=== PATIENT | male | born 1960 | race Caucasian/White ===

== ENCOUNTER 2018-07-21 16:15 | Emergency (ER) | payer SELFPAY, BC ==
[~2018-07-21] VITALS: Ht 170.2 cm; Wt 65.9 kg
[2018-07-21] MEDS ORDERED: LISI10TA4 PO (16:42)
[2018-07-21] MEDS ORDERED: ONDANSETRON 4MG/2ML VIAL (J2405) IV ONE (16:45)
[2018-07-21] MEDS ORDERED: NS 1,000 ML IV SCH (17:37)
[2018-07-21] MEDS: MORPHINE 4 MG/ML 1ML VIAL/SYRINGE (J2270) IV PRN ×2 (17:42→18:30)
[2018-07-21] MEDS ORDERED: PROPOFOL 200 MG/20 ML VIAL IV PRN (17:45)
[2018-07-21] MEDS ORDERED: LIDOCAINE 1% MDV 20ML VIAL As Ordered ONE (18:01)
[2018-07-21] MEDS ORDERED: LIDOCAINE 1% MDV 20ML VIAL IM ONE (18:15)
[2018-07-21] MEDS ORDERED: MORPHINE 4 MG/ML 1ML VIAL/SYRINGE (J2270) As Ordered ONE (18:48)
[2018-07-21] MEDS ORDERED: MORPHINE 4 MG/ML 1ML VIAL/SYRINGE (J2270) IV ONE (19:00)
--- NOTE | 2018-07-21 20:02 | REP ---
Clinical: Status post reduction. Technique: Portable AP, lateral, oblique views of the left ankle. Findings: Fractures of the distal fibular metaphysis and medial malleolus are identified. Improved alignment at the tibiotalar joint is appreciated compared to prior. Impression: Fractures of the distal fibular metaphysis and medial malleolus. Improved alignment at the tibiotalar joint. Electronically Signed by Matthew Keita MD 07/21/2018 07:53 P
--- NOTE | 2018-07-21 20:14 | REP ---
Clinical: Trauma. Reduction. Technique: Axial noncontrast images through the ankle with coronal and sagittal re-formations. Findings: There is a comminuted fracture of the distal fibular metaphysis with approximately 7 mm posterolateral displacement of the primary distal fracture fragment. There are fractures of the medial and posterior malleoli needs distal tibia with mild displacement. Surrounding post traumatic soft tissue infiltration and small areas of hematoma noted. The remainder of the osseous structures appear intact. Impression: Fractures of the distal fibular metaphysis and medial / posterior malleoli with mild displacement. Electronically Signed by Matthew Keita MD 07/21/2018 08:04 P
[2018-07-21] MEDS ORDERED: NORCO 5/325MG TABLET (BULK FOR ED) PO ONE (21:15)
--- NOTE | 2018-07-21 21:47 | REP ---
Clinical: Status post reduction. Technique: Intraoperative fluoroscopic imaging using portable C-arm technique. Findings: Five last hold images during closed reduction demonstrate seemingly satisfactory alignment of the distal fibular and medial / posterior malleolar fractures. Total fluoroscopic time 39 seconds. Impression: Seemingly satisfactory reduction Electronically Signed by Matthew Keita MD 07/21/2018 09:39 P
[2018-07-21 21:55] VITALS: BP 139/71
[2018-07-21] MEDS ORDERED: VICO5TAB17 PO (22:03)
--- NOTE | 2018-07-21 23:22 | CR ---
DATE OF CONSULTATION: 07/21/2018 CHIEF COMPLAINT: Left ankle fracture/dislocation. HISTORY OF PRESENT ILLNESS: Axel is a very pleasant 58-year-old gentleman who sustained a left ankle injury while at work. He had commuted from [place] and was helping move some heavy equipment from a shed, when he lost his balance and twisted his ankle. He had immediate pain and deformity and is unable to bear weight. There were no open wounds. He was brought to the emergency room (ER) at [facility], where x-rays revealed a trimalleolar fracture/dislocation. I was consulted for reduction. The patient was reporting fairly minimal pain. Denied numbness or tingling. Denied any prior ankle injuries. PAST MEDICAL HISTORY: Notable for hypertension. PAST SURGICAL HISTORY: Chest tube. ALLERGIES: No known drug allergies. MEDICATIONS: Antihypertensive medications. SOCIAL HISTORY: The patient does not smoke or abuse alcohol or illicit drugs. Lives out in [place]. He lives with his , who has multiple medical problems. Again, this is a workman's compensation injury. PHYSICAL EXAMINATION: On exam, This is a well-appearing gentleman in no distress. Alert and times three. NEUROLOGIC: Appropriate mood, pleasant affect. CARDIOVASCULAR: 2+ dorsalis pedis (DP) pulse and posterior tibial (PT) pulse. PULMONARY: Nonlabored breathing. ABDOMEN: Soft, nontender, nondistended. SKIN: In the ankle was intact with no open wounds. No abrasions. MUSCULOSKELETAL: Obvious deformity, consistent with a fracture/dislocation, left ankle. There was borderline skin tenting but no threatened open areas. He had intact sensation light touch. He could fire extensor hallucis longus (EHL) and flexor hallucis longus (FHL). His knee was nontender. X-rays, three views, of the left ankle in the ER revealed a trimalleolar ankle fracture/dislocation. ASSESSMENT AND PLAN: Mr. Milian is a 58-year-old gentleman with a left ankle fracture/dislocation. I recommended a closed reduction and ankle joint block. Certainly some logistics issues getting fixed out here or [place]. I did explain to him the operating room (OR) was unavailable due to multiple emergency procedures going on. The risks and benefits of a closed reduction and casting with an ankle block were discussed. Written informed consent was obtained. The patient received a total of 8 mg of IV morphine. The left ankle was marked. It was then sterilely prepped with chlorhexidine. I then injected 10 mL of 1% lidocaine with a 22-gauge needle just medial to the tibialis anterior per hematoma block technique, but this was into the ankle joint, not into the fracture site. That was tolerated well. That was allowed to set for 10 minutes. One of the ER nurses assisted me, and she hyperflexed the left knee, and then I performed a closed reduction with manipulation, pulling the heel anteriorly to undo the posterior subluxation and then internally rotating. This did take multiple attempts, but I was able to successfully reduce the ankle. I confirmed this on AP, lateral, and mortise views with the mini C-arm. I initially planned to splint the patient; however, this was a highly unstable fracture pattern. The talus easily wanted to subluxate posteriorly, so I elected to place him into a well-padded short-leg fiberglass cast. I applied that cast myself and applied a Kathy's type mold with a posterior to anterior force on the heel, and then final images with the cast set. AP, lateral, mortise views on the C-arm showed a near-anatomic reduction. About 1-2 mm of lateral talar shift. No residual dislocation. I then obtained a post reduction CT scan for surgical planning purposes due to the posterior malleolar fracture, and that showed an excellent reduction. The posterior malleolar fragment is less than 20% of the articular surface. I explained to the patient this was a successful procedure. He will need definitive open reduction, internal fixation. We offered to fix him here in [place], or he could go back to [place]. The patient ultimately has elected to go back to [place], which I think is going to be the better logistical decision, especially this being workman's compensation and questionable availability of the OR even late into tomorrow evening. The patient was instructed that he must bring a CD with his x-rays and CT scans to his followup visit. The patient must file a workman's compensation claim tomorrow. He must see an orthopedic surgeon either tomorrow or Thursday before the weekend so he can get on that radar. My opinion is that he will likely be too swollen to be fixed early next week, likely would be 8-9 days at the earliest. He also was advised to let them know that this was a fairly unstable ankle fracture. He was repeatedly educated on the importance of strict elevation. Also non-weightbearing. All the patient's questions were answered. Again, patient was offered for followup here, and he is choosing to followup in [place].
--- NOTE | 2018-07-22 08:13 | REP ---
Clinical: Trauma. Technique: Portable AP and lateral. Findings: Acute ankle fracture(s) possibly involving the posterior and lateral malleoli with overlying soft tissue swelling noted and disruption to the ankle joint including widening along the medial portion of the mortise. Impression: Acute fracture dislocation poorly defined due to a portable technique and positioning. Electronically Signed by Matthew Keita MD 07/21/2018 04:59 P
== END 2018-07-21 22:16 | disposition home or self-care (01) ==
LOC: EDBD 16:15 → M ED 16:15
DX: S82.842A Displaced bimalleolar fracture of left lower leg, initial encounter for closed fracture (principal); X50.1XXA Overexertion from prolonged static or awkward postures, initial encounter; Y92.89 Other specified places as the place of occurrence of the external cause; Y93.9 Activity, unspecified; Y99.0 Civilian activity done for income or pay; I10 Essential (primary) hypertension; Z79.899 Other long term (current) drug therapy
CPT/HCPCS: 27810; 73600; 73610; 73700; 93041; 94760; 96374; 96375; 96376; 99284; J2270; J2405